=== PATIENT | female | born 1980 | race Caucasian/White ===

== ENCOUNTER 2020-10-30 16:26 | Emergency (ER) | payer OTHER, SELFPAY ==
[2020-10-30 16:50] VITALS: BP 154/98; PULSE 99; RESP 18; TEMP 36.1; O2SAT 99
--- NOTE | 2020-10-30 16:57 | ED.DENTAL ---
HPI - Dental/Oral General Chief complaint: Dental/Oral Stated complaint: tooth pain Time Seen by Provider: 10/30/20 16:50 Source: patient and RN notes reviewed Mode of arrival: ambulatory Limitations: no limitations History of Present Illness HPI Narrative: 40 year old female who presents to [facility] care with complaints of dental pain to left lower tooth #17 anterior aspect which started last night. Patient states that her pain is 8/10 and describes her pain as constant and sharp which is aggravated by cold and chewing. Patient has noted gum swelling around #17 tooth with redness no drainage noted, obvious caries to #17 tooth. Patient states history of previous dental abscesses and poor dental care. Patient states some radiation of her pain to her left ear, no facial edema noted, has taken Ibuprofen for her pain with minimal pain decrease. MD Complaint: tooth pain Location: Tooth # (17) Onset (ago): day(s) (1) Duration: constant Severity: severe Severity scale (1-10): 8 Relieving factors: nothing Exacerbating factors: chewing and cold Context: history of dental caries and poor dental care Associated symptoms: gum swelling and other (dental pain) Treatment prior to arrival: other (ibuprofen) Related Data Allergies Allergy/AdvReac Type Severity Reaction Status Date / Time Penicillins Allergy Difficulty Verified 10/30/20 16:55 Breathing clindamycin AdvReac Vomiting Verified 10/30/20 16:55 Review of Systems Review of Systems: Narrative: CONSTITUTIONAL: Denies fever, chills, or sweats. EYES: Denies visual changes, redness, or discharge. ENT: Denies rhinorrhea, congestion, sore throat, positive for left ear pain, dental pain to left lower molar#17 with redness and swelling of surrounding gum with obvious dental caries.. CARDIOVASCULAR: Denies chest pain, palpitations, or edema. RESPIRATORY: Denies cough or dyspnea. GASTROINTESTINAL: Denies abdominal pain, nausea, vomiting, or diarrhea. GENITOURINARY: Denies dysuria or hematuria. SKIN: Denies rash or itching. MUSCULOSKELETAL: Denies back pain, joint pain, or myalgia. NEUROLOGIC: Denies headache, numbness, or weakness. PSYCHIATRIC: Denies anxiety or depression. All systems reviewed & are unremarkable except as noted in HPI and below PMFSH Past Medical History Medical History (Updated 11/01/20 @ 14:04 by Lakisha Betancourt NP) History of dental abscess Surgical History Surgical History (Updated 11/01/20 @ 13:58 by Lakisha Betancourt NP) H/O: hysterectomy Previous section X4 Family History Family History (Updated 11/01/20 @ 13:59 by Lakisha Betancourt NP) Other Significant paternal family history Social History Social History (Updated 11/01/20 @ 14:00 by Lakisha Betancourt NP) Smoking status: Current every day smoker Alcohol intake: unknown Substance use: never Living arrangements: with family Gender identity (if verbalized by the patient): Female Comments At time of signature, agree with nursing past medical, surgical, social and family history. There is no relevant family history pertinent to the presenting complaint Exam Narrative: Exam Narrative: GENERAL: Well-appearing, well-nourished, and in mild acute distress. HEAD: Normocephalic, atraumatic. EYES: PERRLA and EOMI. ENT: Nares clear, no rhinorrhea or epistaxis. Mucous membranes moist.TM's normal with good light reflex, throat pink with no lesions or exudates, no tonsil enlargement, dental pain to #17 lower left molar with red swollen gum and obvious dental caries, no Jagdish angina note. NECK: Supple.no lymphadenopathy CHEST: Clear to auscultation. No respiratory distress.SAO2 99% on room air. HEART: Regular rate and rhythm. No murmur heard. Normal peripheral pulses. ABDOMEN: Soft, nontender, nondistended, normal active bowel sounds. EXTREMITIES: Normal range of motion. No edema. SKIN: Warm, dry, no rash. NEURO: No focal deficits. Alert and oriented x3. Course Vital Signs Vit
== END 2020-10-30 17:27 | disposition home or self-care (01) ==
PROVIDERS: Emergency Provider Registered Nurse; PCP Nurse Practitioner
DX: K08.89 Other specified disorders of teeth and supporting structures (principal); K02.9 Dental caries, unspecified; K04.7 Periapical abscess without sinus; F17.200 Nicotine dependence, unspecified, uncomplicated
CPT/HCPCS: 99203; G0463

== ENCOUNTER 2021-12-26 16:08 | Emergency (ER) | payer OTHER, SELFPAY ==
[2021-12-26 16:14] VITALS: BP 125/61; PULSE 89; RESP 18; TEMP 36.3; O2SAT 98
== END 2021-12-26 17:07 | disposition left against medical advice (07) ==
LOC: ANHED 17:13
PROVIDERS: PCP Nurse Practitioner Family
DX: H92.02 Otalgia, left ear (principal)
CPT/HCPCS: 99199

== ENCOUNTER 2022-03-10 03:48 | Emergency (ER) | payer OTHER, SELFPAY ==
[2022-03-10 03:50] VITALS: BP 149/95; PULSE 93; RESP 20; TEMP 36.3; O2SAT 98
--- NOTE | 2022-03-10 04:09 | ED.GENADULT ---
HPI - General Adult General Chief complaint: Ear Stated complaint: Left ear pain, toothache Time Seen by Provider: 03/10/22 03:54 History of Present Illness HPI narrative: 41-year-old female presenting to the emergency department for evaluation of left dental pain that does radiate to her left ear. Patient states she began developing dental pain a few days ago and then last night it radiated to her left ear. Patient states she is attempting to seek follow-up with a dentist but is new to the area. Related Data Home Medications Medication Instructions Recorded Confirmed atorvastatin 40 mg tablet tablet 03/10/22 furosemide 20 mg tablet tablet 03/10/22 levothyroxine 75 mcg tablet tablet 03/10/22 (Euthyrox) metoprolol succinate 50 mg tablet PO 03/10/22 tablet,extended release 24 hr Allergies Allergy/AdvReac Type Severity Reaction Status Date / Time Penicillins Allergy Difficulty Verified 03/10/22 03:53 Breathing clindamycin AdvReac Vomiting Verified 03/10/22 03:53 metoclopramide [From Reglan] AdvReac Irritable Verified 03/10/22 03:53 Review of Systems Review of Systems: CONSTITUTIONAL: Denies fever, chills, or sweats. EYES: Denies visual changes, redness, or discharge. ENT: See HPI CARDIOVASCULAR: Denies chest pain, palpitations, or edema. RESPIRATORY: Denies cough or dyspnea. GASTROINTESTINAL: Denies abdominal pain, nausea, vomiting, or diarrhea. GENITOURINARY: Denies dysuria or hematuria. SKIN: Denies rash or itching. MUSCULOSKELETAL: Denies back pain, joint pain, or myalgia. NEUROLOGIC: Denies headache, numbness, or weakness. [facility] Past Medical History Medical History (Updated 03/10/22 @ 04:17 by Ti Doyle MD) History of dental abscess Surgical History Surgical History (Updated 11/01/20 @ 13:58 by Lakisha Betancourt NP) H/O: hysterectomy Previous section X4 Family History Family History (Updated 11/01/20 @ 13:59 by Lakisha Betancourt NP) Other Significant paternal family history Social History Social History (Updated 11/01/20 @ 14:00 by Lakisha Betancourt NP) Smoking status: Current every day smoker Alcohol intake: unknown Substance use: never Gender identity (if verbalized by the patient): Female Exam Narrative: APPEARANCE: Well appearing, no pain, no distress, well-nourished. HEAD: normocephalic, atraumatic. EYES: PERRLA/EOMI, conjunctivae clear. NOSE: Normal no drainage Mouth: Multiple dental caries. No drainable dental abscess. THROAT: Pharynx clear, no exudate. NECK: Supple. No adenopathy, no masses. RESPIRATORY: Airway patent, respirations nonlabored. Clear to auscultation bilaterally, no rales, rhonchi, wheezing. CARDIOVASCULAR: Regular rate and rhythm without murmurs rubs or gallops. ABDOMINAL: Soft, nontender, nondistended, normal bowel sounds MUSCULOSKELETAL: Moves all extremities. Strength/ROM intact, No edema, No calf tenderness. NEURO: Alert. Cranial nerves II through XII intact. Grossly intact SKIN: Warm, dry. Normal Color Course Course Emergency Course: Patient was started on azithromycin due to underlying medication allergies. Patient was encouraged to continue with close follow-up with a dentist. All question concerns were addressed. Vital Signs Vital signs: Vital Signs Temperature 97.4 F L 03/10/22 03:50 Pulse Rate 93 03/10/22 03:50 Respiratory Rate 20 03/10/22 03:50 Blood Pressure 149/95 H 03/10/22 03:50 Pulse Oximetry 98 03/10/22 03:50 Oxygen Delivery Room Air 03/10/22 03:50 Temperature 97.4 F L 03/10/22 03:50 Pulse Rate 83 03/10/22 04:30 Respiratory Rate 14 03/10/22 04:30 Blood Pressure 144/99 H 03/10/22 04:30 Pulse Oximetry 98 03/10/22 04:30 Oxygen Delivery Room Air 03/10/22 03:50 Medical Decision Making Vital Signs Vital Signs: Vital Signs Temperature 97.4 F L 03/10/22 03:50 Pulse Rate 93 03/10/22 03:50 Respiratory Rate 20 03/10/22 03:50 Blood Pre
[2022-03-10] MEDS: AZITHROMYCIN 250 MG TABLET 500 MG PO (04:27)
[2022-03-10 04:30] VITALS: BP 144/99; PULSE 83; RESP 14; O2SAT 98
== END 2022-03-10 04:30 | disposition home or self-care (01) ==
PROVIDERS: Emergency Provider Emergency Medicine; PCP Nurse Practitioner Family
DX: K02.9 Dental caries, unspecified (principal); F17.200 Nicotine dependence, unspecified, uncomplicated
CPT/HCPCS: 99283; A9270

== ENCOUNTER 2024-03-18 10:03 | Emergency (ER) | payer OTHER, SELFPAY ==
[2024-03-18 10:04] VITALS: BP 162/90; PULSE 86; RESP 16; TEMP 36.4; O2SAT 99
--- NOTE | 2024-03-18 10:32 | PC.NURSE ---
Pt reports taking Clindamycin 300mg TID states she last took it at 0500. Pt states she didn't know the prescription was clindamycin and states she has allergy to the medication. When asked what type of reaction she has, pt informed this RN that she gets nauseous and very restless
--- NOTE | 2024-03-18 10:34 | ED.SKABFB ---
HPI - Skin/Abscess/Foreign Bdy General Chief complaint: Skin/Abscess/Foreign Body Stated complaint: swelling to face Time Seen by Provider: 03/18/24 10:33 Source: patient Mode of arrival: ambulatory Limitations: no limitations History of Present Illness HPI narrative: LEFT LOWER GUM DENTAL PAIN STARTED FEW DAYS AGO, STARTED ON CLINDAMYCIN YESTERDAY BY URGENT CARE, PATIENT IS ALLERGIC TO PENICILLIN AND CLINDAMYCIN. CLINDAMYCIN MAKE HER JITTERY AND NERVOUS. SHE DENIES ANY FEVER, CHILLS, NAUSEA, VOMITING, TROUBLE SWALLOWING OR BREATHING OR HEADACHE. Related Data Allergies Allergy/AdvReac Type Severity Reaction Status Date / Time Penicillins Allergy Difficulty Verified 03/18/24 10:31 Breathing clindamycin AdvReac Vomiting Verified 03/18/24 10:31 metoclopramide [From Reglan] AdvReac Irritable Verified 03/18/24 10:31 Review of Systems Review of Systems: All systems reviewed & are unremarkable except as noted in HPI and below PMFSH Past Medical History Medical History LILI positive CHF (congestive heart failure) Counseling on health promotion and disease prevention Diabetes Encounter for medication management History of dental abscess Polyarthralgia Surgical History Surgical History H/O: hysterectomy Previous section X4 Family History Family History Grandparent Cancer Hypertension Other Significant paternal family history Social History Social History Smoking status: Current every day smoker Alcohol intake: former Substance use: never Substance use type: does not use Do You Feel Safe in your Home?: Yes Lack of Transportation: No Lack of Food: Never True Current Housing: I Have Housing Concerned About Future Housing: No Difficulty Paying Gas/Electric Bills: No Difficulty Paying for Meds: No Currently Unemployed: No Education: Decline to Answer Difficulty w/ Childcare or Family Care: No Living arrangements: with family Occupation/Education: occupation Gender identity (if verbalized by the patient): Female Agree to blood products: Yes Exam Narrative: GENERAL APPEARANCE: WELL-DEVELOPED, WELL-NOURISHED SKIN: NORMAL COLOR HEAD: NORMOCEPHALIC, NONTRAUMATIC EYES: CLEAR CONJUNCTIVA ENT: DIFFUSE DENTAL DECAY LEFT LOWER TEETH, SLIGHTLY SWOLLEN GUM, NO OBVIOUS ABSCESS FORMATION AT THIS TIME. NECK: SUPPLE, NONTENDER VASCULAR: NORMAL PERIPHERAL PULSES, NORMAL CAPILLARY REFILL. MUSCULOSKELETAL: NORMAL RANGE OF MOTION, NONTENDER BACK NEUROLOGIC: ALERT AND ORIENTED ?3, SOFTWARE DEVELOPMENT ANALYST IS NORMAL TESTED, NO GROSS MOTOR DEFICIT Course Vital Signs Vital signs: Vital Signs Temperature 36.4 C 03/18/24 10:04 Pulse Rate 86 03/18/24 10:04 Respiratory Rate 16 03/18/24 10:04 Blood Pressure 162/90 H 03/18/24 10:04 Pulse Oximetry 99 03/18/24 10:04 Oxygen Delivery Room Air 03/18/24 10:04 Temperature 36.4 C 03/18/24 10:04 Pulse Rate 86 03/18/24 10:04 Respiratory Rate 16 03/18/24 10:04 Blood Pressure 162/90 H 03/18/24 10:04 Pulse Oximetry 99 03/18/24 10:04 Oxygen Delivery Room Air 03/18/24 10:04 MDM - Skin/Abscess/Foreign Bdy MDM Narrative Medical decision making narrative: DENTAL INFECTION/ABSCESS IS MY CONCERN. PATIENT DOES NOT NEED ANY LABS OR ANY IMAGING AT THIS TIME. PATIENT IS ALLERGIC TO PENICILLIN AND CLINDAMYCIN. MY PLAN TO DISCHARGE HER ON LEVAQUIN AND METRONIDAZOLE. Differential Diagnosis Differential diagnosis: Likely other
--- NOTE | 2024-03-18 10:58 | PC.NURSE ---
Report given to Ngozi SERNA, all questions answered
[2024-03-18] MEDS: IBUPROFEN 400 MG TABLET 800 MG PO (12:25)
[2024-03-18] MEDS: ACETAMINOPHEN 500 MG TABLET 1000 MG PO (12:25)
[2024-03-18 12:27] VITALS: BP 144/74; PULSE 88; RESP 20; O2SAT 97
== END 2024-03-18 12:28 | disposition home or self-care (01) ==
PROVIDERS: Emergency Provider Emergency Medicine; PCP Nurse Practitioner Family
DX: K08.89 Other specified disorders of teeth and supporting structures (principal); I50.9 Heart failure, unspecified; E11.9 Type 2 diabetes mellitus without complications; Z90.710 Acquired absence of both cervix and uterus; F17.200 Nicotine dependence, unspecified, uncomplicated; Z79.899 Other long term (current) drug therapy
CPT/HCPCS: 99283; A9270

== ENCOUNTER 2025-03-02 11:26 | Outpatient (CLI) | payer OTHER, SELFPAY ==
--- NOTE | 2025-03-02 11:43 | ECG_ITS ---
Test Date: 2025-03-02 11:51:07 Measurements Intervals [place] Rate: 69 P: -4 IN: 170 QRS: -30 QRSD: 94 T: 28 QT: 377 QTc: 405 Interpretive Statements SINUS RHYTHM POOR R WAVE PROGRESSION BASELINE ARTIFACT- I, II, III, AVR, AVL, AVF BORDERLINE ECG No previous ECG available for comparison Electronically Signed On 03-02-2025 12:38:09 CDT by Braden Velazquez D.O.
== END 2025-03-02 11:27 | disposition home or self-care (01) ==
LOC: ANHSURGERY 11:31
PROVIDERS: PCP Nurse Practitioner Family; Visit Provider Surgery
DX: Z01.810 Encounter for preprocedural cardiovascular examination (principal); E78.5 Hyperlipidemia, unspecified; I10 Essential (primary) hypertension
CPT/HCPCS: 93005

== ENCOUNTER 2025-03-04 00:36 | Day surgery (SDC) | payer OTHER, SELFPAY ==
[2025-03-01 15:07] VITALS: BMI 29.5
--- NOTE | 2025-03-01 15:13 | PC.NURSE ---
Report to the Outpatient Waiting Room, entrance under the green pavilion located off [facility], at time _1pm_ on date _[phone]_. Planned Procedure Time: _3pm_.? Time changes happen often and if your time is changed the preop area will call you the afternoon before. - You and your visitor will be asked to self-screen and do not enter if you have any COVID symptoms. Please call surgeon if you need to reschedule. - A mask is optional within the hospital at this time. Patients may have clear liquids (water, carbonated beverages, clear teas, apple juice) until 3 hours prior to surgery with a maximum of 20 ounces. - No food from midnight until time of surgery and no smoking, or chewing tobacco (or any form of nicotine). No chewing gum, candy or mints. Take only the following medications with a SIP of water on the morning of surgery: ___Levothyroxine and Metoprolol___ DO NOT STOP ANY OF YOUR OTHER PRESCRIPTION MEDICATIONS PRIOR TO SURGERY EXCEPT THE FOLLOWING Hold all vitamins and supplements for 3 days per anesthesiologist. Medications to discontinue per physician Date to take last dose____ Please no make-up, nail senegalese, hairspray, perfume, deodorant, or body powder the day of surgery.? No jewelry (including any body piercings) or valuables the day of surgery, leave them at home.? Please take a shower or bath the night before, or the morning of, surgery with an antibacterial soap.? Wear comfortable, loose fitting clothing.? - Jewelry must be removed prior to entering the operating room.? Rings and piercings that are not removed may be cut off. - The hospital will not accept responsibility for valuables.? - Please leave all valuables, including medications, at home the day of surgery. If you are going home after surgery, a licensed city route driver must drive you home.? - NO public transportation without another adult if you receive anesthesia. - We recommend that an adult stay with you for 24 hours following discharge. - We also recommend that you do not drive, make important decision, drink alcoholic beverages, or take any drugs that were not prescribed by your health care provider for at least 24 hours after your discharge time. Follow any additional instructions given to you from your surgeon. Telephone instructions given to __Antonietta__and asked if any additional questions and then verbalized understanding. Patient advised to call surgeon office or pre surgery nurse liaison [phone] if any additional questions.
[2025-03-04] VITALS (14 sets, daily range): BP systolic 120–171; BP diastolic 50–96; PULSE 53–95; RESP 14–21; TEMP 36.4–36.8; O2SAT 95–100; BMI 28.7
--- NOTE | 2025-03-04 08:32 | WPDANESEPP ---
Anes - Eval Pre Procedure Procedure: Operation Date: 03/04/25 11:00 Proposed Procedures p Open Umbilical Hernia Repair, Possible Mesh - Jefry Galarza MD Date/Time: 03/04/25 08:32 Surgeon: Geovanni Pre Op Diagnosis: reducible Umbilical Hernia Patient Data Age: 44 Gender: F Height: 1.66 m Weight: 81.8 kg Allergies Allergy/AdvReac Type Severity Reaction Status Date / Time Penicillins Allergy Difficulty Verified 03/01/25 15:06 Breathing clindamycin AdvReac Vomiting Verified 03/01/25 15:06 metoclopramide (From Reglan) AdvReac Irritable Verified 03/01/25 15:06 Home Medications ?Medication ?Instructions ?Recorded ?Confirmed ?Type losartan 25 mg tablet 25 mg PO DAILY #90 tabs 11/22/24 03/01/25 Rx metoprolol succinate 50 mg 50 mg PO DAILY #90 tabs 01/25/25 03/01/25 Rx tablet,extended release 24 hr atorvastatin 40 mg tablet 40 mg PO QHS #90 tabs 02/03/25 03/01/25 Rx levothyroxine 112 mcg tablet 112 mcg PO DAILY #90 tabs 02/22/25 03/01/25 Rx Patient hx anesthesia problems: none Family hx anesthesia problems: none Prior surgeries: CS X 4, hysterectomy Results Review: All pre-operative results and documents have been reviewed as part of the pre-operative evaluation. [facility] Past Medical History Medical History Tobacco abuse CHF (congestive heart failure) Diabetes Counseling on health promotion and disease prevention Encounter for medication management Polyarthralgia LILI positive History of dental abscess Surgical History Surgical History H/O: hysterectomy Previous section X4 Family History Family History Grandparent Cancer Hypertension Other Significant paternal family history Social History Social History Social History: Pt is very confident in filling out medical forms. Pt has not received assistance in the last 12 months. Years smoked: 7 Smoking status: Current every day smoker Tobacco type: cigarettes Alcohol intake: former Substance use: never Substance use type: does not use Do You Feel Safe in your Home?: Yes Lack of Transportation: No Lack of Food: Never True Current Housing: I Have Housing Concerned About Future Housing: No Difficulty Paying Gas/Electric Bills: No Difficulty Paying for Meds: No Currently Unemployed: No Education: Decline to Answer Difficulty w/ Childcare or Family Care: No Living arrangements: with family Occupation/Education: occupation Gender identity (if verbalized by the patient): Female Spiritual care concerns: No Agree to blood products: Yes Exam Day of Procedure 03/04/25 08:32
[2025-03-04] MEDS: LACTATED RINGERS 1,000 ML 30 ML IV CONT ×2 (09:00→13:01)
[2025-03-04] MEDS: ACETAMINOPHEN 500 MG TABLET 1000 MG PO (09:05)
[2025-03-04] MEDS: KETOROLAC 15 MG/ML VIAL (*BKC) IV PUSH (09:05)
--- NOTE | 2025-03-04 10:58 | WPDHPUPDATE1 ---
History and Physical Update Update Date/Time: 03/04/25 10:58 History and Physical has been reviewed, including an updated exam of the patient. There are NO changes in the patient's condition. Risks, benefits, and alternatives have been discussed and questions answered. Patient agrees to proceed with procedure.
--- NOTE | 2025-03-04 11:03 | P.PNAN_ITS ---
Anes - Eval Final PreProcedure Day of Procedure 03/04/25 11:03 Patient weight: obese Heart: regular rate and rhythm Lungs: decreased breath sounds Airway: Mallampati scale class II Neurological: alert and oriented Last oral intake: >/= 8 hours ASA classification: III Emergent: no Anesthetic plan: proceed Anesthesia type and monitoring: general ETT and standard monitoring Results Review: All pre-operative results and documents have been reviewed as part of the pre- operative evaluation. Informed Consent: The patient's anesthetic plan and its attendant risks and benefits were discussed with the patient/family/POA. Questions were solicited and answers provided to the satisfaction of the patient/family/POA.
[2025-03-04] MEDS: ceFAZolin 2 GM/D5W 50 ML 2 GM/50 ML BAG IVPB (11:09)
[2025-03-04] MEDS: BUPivacaine HCL 0.5% PF 30 ML VIAL INFILTRATE (11:37)
--- NOTE | 2025-03-04 11:46 | S_PTH ---
PATIENT: Antonietta Kolb LOC: [facility] U#:[id number] AGE/SX: 44/F ROOM: RE03/04/[address]: Jefry Galarza MD : 1980 BED: DIS: 03/04/2025 SPEC #: [id number] RECD: 03/04/25 13:26 STATUS: KELVIN REGenesis #: [id number] OSVALDO: 03/04/25 11:[address]: Jefry Galarza DEPT: [facility] RECD BY: Brissa Vigil ENTERED: 03/04/25 13:26 SP TYPE: Surgical OTHR DR: Patricia Montoya APRN Tissues: A - Hernia Sac Procedures: Gross and Microscopic Level 2 Hematoxylin and Eosin Stain
--- NOTE | 2025-03-04 12:15 | W.PM.PROC2 ---
Procedure Note - Detailed Date of Procedure 03/04/25 Pre-op Diagnosis Reducible Umbilical Hernia Post-op Diagnosis Same Procedure Performed Open umbilical hernia repair without mesh the Surgeon Jefry Galarza MD Fibrous Wallboard Inspector August Vidal, EARLINE Anesthesia General Indications Patient is a 44-year-old female presented with a bulging area the umbilicus. It was causing to have some pain. On examination reducible umbilical hernia. This was getting larger and causing her symptoms she wished to have repaired electively. Findings Patient reducible umbilical hernia. Defect at the fascia was approximate 2cm in diameter. It was closed primarily with suture without use of any mesh. Description of Procedure After informed consent was obtained patient brought to the operating room she was placed supine position and general endotracheal anesthesia was administered. The abdomen was then prepped and draped usual sterile fashion. A time-out was then performed correctly identifying the patient as well as procedure to be performed. Perioperative IV antibiotics. I then made a small curved infraumbilical incision along the edge of the umbilical fold. Dissection carried sharply down through the dermis skin with a scalpel and then electrocautery was used to dissect down subcutaneous tissues to the hernia sac. The hernia sac was encircled bluntly with a Nicole clamp. I then utilized electrocautery to disconnect the dermis of the umbilicus from the underlying hernia sac. Once this was done I then was able to feel the defect was approximately 1 and half to 2cm in diameter. I then incised the attenuated fascia and hernia sac at the fascial level with electrocautery and removed the hernia sac. The hernia sac was sent to pathology for examination. I then placed my index finger into the abdomen after reduced the small amount omentum. I swept underneath the anterior abdominal wall circumferentially there were no adhesions in the area. I then primarily closed the defect utilizing multiple interrupted 0 Ethibond sutures placed with a least 1cm of fascial bites on each side. Closure of the defect was done without any tension. I then irrigated out the incision sterile saline solution hemostasis was good. I then injected 1% lidocaine mixed with 0.5% Marcaine with epinephrine around the incision for postoperative pain relief. I then recreated the inverted umbilicus by tacking down the dermis of the umbilicus to the deeper fascia with a 3-0 Vicryl suture. The subcutaneous tissues were then closed with layers of interrupted 2-0 Vicryl sutures and 3-0 Vicryl sutures. The skin edges were approximated utilizing a running subcuticular 4-0 Monocryl suture. The incision was then cleaned then skin glue was applied. The patient tolerated the procedure well no complications. All sponges, needles, and instrument counts were correct at the end procedure. EBL was _25__cc. The patient was awakened and taken to recovery in stable and satisfactory condition. Implants None Estimated Blood Loss 25 Drains No Packing No Pathology Yes (Hernia sac) Complications No immediate complications Condition Stable Disposition PACU [facility] Billing Surgery - Charge Forward: Surgery Billing
[2025-03-04] MEDS: fentaNYL CITRATE INJ (*CRX) 100 MCG/2 ML VIAL 25 MCG IV PUSH ×5 (12:35→13:22)
[2025-03-04] MEDS: ONDANSETRON INJ 4 MG/2 ML VIAL IV PUSH (12:40)
[2025-03-04] MEDS: oxyCODONE HCL (*CRX) 5 MG TAB IR PO (14:22)
== END 2025-03-04 15:22 | disposition home or self-care (01) ==
PROVIDERS: PCP Nurse Practitioner Family; Visit Provider Surgery
PROC: (CPT 49591; principal; 2025-03-04 11:00)
DX: K42.9 Umbilical hernia without obstruction or gangrene (principal); E78.5 Hyperlipidemia, unspecified; I11.0 Hypertensive heart disease with heart failure; I50.9 Heart failure, unspecified; E11.9 Type 2 diabetes mellitus without complications; F17.210 Nicotine dependence, cigarettes, uncomplicated; E66.9 Obesity, unspecified; Z68.28 Body mass index [BMI] 28.0-28.9, adult; Z98.890 Other specified postprocedural states; Z80.9 Family history of malignant neoplasm, unspecified
CPT/HCPCS: 49591; 88302; A9270; J0690; J1885; J2003; J2004; J2250; J2405; J2704; J3010; J7120